=== PATIENT | male | born 1960 | race Two or more races ===

== ENCOUNTER 2024-07-20 18:23 | Inpatient (IN) | payer MEDICAID, OTHER ==
[~2024-07-20] VITALS: Ht 167.6 cm; Wt 63.0 kg
[2024-07-20 19:33] LABS: Basophils # (auto) 0.1 10 ^3/uL (0-0.2); Basophils % (auto) 1.3 % (0.0-2.0); Eosinophils # (auto) 0 10 ^3/uL (0-0.8); Eosinophils % (auto) 0.5 % (0.0-7.0); Hematocrit 38.8 % (41.0-53.0); Hemoglobin 13.1 g/dL (13.5-17.5); Lymphocytes # (auto) 1.1 10 ^3/uL (0.4-5.4); Lymphocytes % (auto) 11.1 % (10.0-50.0); Mean Corpuscular Hemoglobin 29.5 pg (28.0-32.0); Mean Corpuscular Hgb Conc. 33.8 g/dL (32.0-36.0); Mean Corpuscular Volume 87.4 fL (80.0-100.0); Monocytes # (auto) 1.1 10 ^3/uL (0-1.3); Monocytes % (auto) 11.1 % (0.0-12.0); Neutrophils # (auto) 7.3 10 ^3/uL (1.6-8.6); Platelet Count (auto) 255 10^3/uL (140-450); Red Blood Cells 4.44 10^6/uL (4.5-5.90); Red Cell Distribution Width 12.8 % (11.8-14.3); White Blood Cell 9.7 10^3/uL (4.4-10.8)
[2024-07-20 19:50] LABS: Alanine Aminotransferase 28 U/L (7-40); Albumin 4.6 g/dL (3.2-4.8); Alkaline Phosphatase 196 U/L (46-116); Anion Gap 6 (5-15); Aspartate Aminotransferase 19 U/L (13-40); BUN/Creatinine Ratio 12.6 (10.0-20.0); Bilirubin, Total 0.6 mg/dL (0.2-1.0); Blood Urea Nitrogen 17 mg/dL (9-23); Calcium 10.1 mg/dL (8.7-10.4); Carbon Dioxide 27 mmol/L (20-31); Chloride 97 mmol/L (98-107); Potassium 4.2 mmol/L (3.5-5.1); Sodium 130 mmol/L (136-145); Total Protein 7.9 g/dL (5.7-8.2)
[2024-07-20 19:53] LABS: Glucose 498 mg/dL (74-106)
[2024-07-20 20:19] LABS: Urine Bacteria None Seen /hpf (None Seen)
[2024-07-20 20:39] LABS: Urine Blood 1+ /uL (Negative); Urine Clarity Clear (Clear); Urine Color Light-Yellow (Yellow); Urine Protein, UAD 1+ (Negative); Urine Specific Gravity 1.034 (1.001-1.035); Urine Urobilinogen Normal (Negative); Urine WBC <1 /hpf (0 - 3); Urine pH 5.5 (5.0-9.0)
[2024-07-20 20:47] LABS: Amphetamine Screen, Urine Pos (NEGATIVE); Barbiturate Scree,Urine Neg (NEGATIVE); Benzodiazephine Screen, Urine Neg (NEGATIVE); Cocaine Screen, Urine Neg (NEGATIVE)
[2024-07-20 20:48] LABS: Cannabinoid Screen, Urine Neg (NEGATIVE); Opiate Scree,Urine Neg (NEGATIVE); Phencyclidine Screen, Urine Neg (NEGATIVE)
[2024-07-20] MEDS ORDERED: cefTRIAXone 1GM/50ML D5W 50 ML IV ONE (21:00)
[2024-07-20] MEDS: SODIUM CHLORIDE 0.9% 1,000 ML IV ONE ×2 (21:12)
[2024-07-20] MEDS: HYDROcodone-ACET 5/325MG TAB PO ONE (21:16)
[2024-07-20] MEDS: INSULIN LANTUS (GLARGINE) 1 /0.01ml (100units/ml) SC ONE ×2 (21:28→23:19)
[2024-07-20] MEDS: cefTRIAXone 1GM/50ML D5W 50 ML IV ONE (21:28)
[2024-07-20] MEDS ORDERED: DEXTROSE (50%) 50ML SYRG IV PRN ×2 (21:30→23:00)
[2024-07-20] MEDS: LISINOPRIL 5 MG TAB PO ONE (21:30)
[2024-07-20] MEDS ORDERED: CLINDAMYCIN 600MG IV 50 ML IV ONE (21:30)
[2024-07-20] MEDS: THIAMINE 100mg/ml INJ (200mg/2ml VIAL) IV ONE (21:40)
[2024-07-20 22:04] LABS: INR 1.06 (0.9-1.15); Partial Thromboplastin Time 32.2 SEC (24.5-34.5); Prothrombin Time 11.2 sec (9.3-11.8)
[2024-07-20] MEDS: CLINDAMYCIN 600MG IV 50 ML IV ONE (22:17)
[2024-07-20 22:48] LABS: Blood Alcohol < 3.0 mg/dL (<10); Magnesium 1.6 mg/dL (1.6-2.6)
[2024-07-20 22:49] LABS: Phosphorus 3.2 mg/dL (2.4-5.1)
[2024-07-21] MEDS: ACCU-CHEK COMFORT CURVE STRIP VI SCH
[2024-07-21] MEDS ORDERED: InsuLIN REG 1unit/0.01ml Soln (100units/ml) SC SCH
[2024-07-21] MEDS ORDERED: ACCU-CHEK COMFORT CURVE STRIP VI SCH
[2024-07-21] MEDS: InsuLIN REG 1unit/0.01ml Soln (100units/ml) SC SCH (00:52)
[2024-07-21] MEDS: MAGNESIUM OXIDE 400 MG TAB PO ONE (02:38)
[2024-07-21] MEDS: traMADol HCL 50 MG TAB PO PRN (04:20)
[2024-07-21 04:41] LABS: Basophils # (auto) 0.2 10 ^3/uL (0-0.2); Basophils % (auto) 1.7 % (0.0-2.0); Eosinophils # (auto) 0.1 10 ^3/uL (0-0.8); Hemoglobin 13.1 g/dL (13.5-17.5); Lymphocytes # (auto) 1.4 10 ^3/uL (0.4-5.4); Lymphocytes % (auto) 13.1 % (10.0-50.0); Mean Corpuscular Hemoglobin 29.6 pg (28.0-32.0); Mean Corpuscular Hgb Conc. 34.5 g/dL (32.0-36.0); Mean Corpuscular Volume 85.8 fL (80.0-100.0); Monocytes # (auto) 1.4 10 ^3/uL (0-1.3); Monocytes % (auto) 13.7 % (0.0-12.0); Neutrophils # (auto) 7.3 10 ^3/uL (1.6-8.6); Neutrophils % (auto) 70.5 % (37.0-80.0); Nucleated Red Blood Cells % 0.2 %; Platelet Count (auto) 149 10^3/uL (140-450); Red Blood Cells 4.43 10^6/uL (4.5-5.90); White Blood Cell 10.4 10^3/uL (4.4-10.8)
[2024-07-21] MEDS: CYANOCOBALAMIN (B-12) 1000 MCG/1 ML VIAL IM ONE (04:43)
[2024-07-21 04:49] LABS: Chloride 104 mmol/L (98-107); Sodium 134 mmol/L (136-145)
[2024-07-21 04:50] LABS: Anion Gap 9 (5-15); Carbon Dioxide 21 mmol/L (20-31)
[2024-07-21 04:51] LABS: Calcium 9.5 mg/dL (8.7-10.4)
[2024-07-21 04:55] LABS: BUN/Creatinine Ratio 13.8 (10.0-20.0); Blood Urea Nitrogen 13 mg/dL (9-23)
[2024-07-21 04:57] LABS: Glucose 196 mg/dL (74-106)
[2024-07-21] MEDS ORDERED: IPRATROPIUM BROM 0.5 MG/2.5ML INH SOL NEB SCH (06:00)
[2024-07-21] MEDS: CLINDAMYCIN 600MG IV 50 ML IV SCH (06:59)
[2024-07-21 08:47] VITALS: PULSE 102; RESP 16; O2SAT 98
[2024-07-21] MEDS: ENOXAPARIN SOD 30 MG/0.3 ML SYRINGE SC SCH (10:31)
[2024-07-21] MEDS: ERGOCALCIFEROL 50,000 UNIT(1.25MG) CAP PO SCH (10:31)
[2024-07-21] MEDS: LISINOPRIL 5 MG TAB PO SCH (10:32)
[2024-07-21 10:36] LABS: COVID19 ANTIGEN SOFIA FIA NEGATIVE (NEGATIVE); Rapid Influenza A Negative (Negative); Rapid Influenza B Negative (Negative)
[2024-07-21 13:52] VITALS: BP 128/98; PULSE 89; RESP 16; TEMP 98.1; O2SAT 96; O2SAT 98
[2024-07-21 15:29] LABS: Erythrocyte Sedimentation Rate 60 mm/hr (0-20)
[2024-07-21 17:00] VITALS: BP 158/80; PULSE 86; RESP 17; TEMP 98.2; O2SAT 98
[2024-07-21 20:00] VITALS: PULSE 80; RESP 17; O2SAT 98
[2024-07-21] MEDS: cefTRIAXone 1GM/50ML D5W 50 ML IV SCH (20:15)
[2024-07-21 21:00] VITALS: BP 163/87; PULSE 111; RESP 20; TEMP 98.6; O2SAT 99
[2024-07-22] VITALS (9 sets, daily range): BP systolic 138–160; BP diastolic 66–80; PULSE 75–115; RESP 15–21; TEMP 97.7–99.7; O2SAT 94–100
[2024-07-22 06:17] LABS: Anion Gap 6 (5-15); Carbon Dioxide 27 mmol/L (20-31); Chloride 101 mmol/L (98-107); Sodium 134 mmol/L (136-145)
[2024-07-22 06:19] LABS: Calcium 9.7 mg/dL (8.7-10.4)
[2024-07-22 06:24] LABS: BUN/Creatinine Ratio 11.1 (10.0-20.0); Blood Urea Nitrogen 12 mg/dL (9-23); Glucose 247 mg/dL (74-106)
[2024-07-22 08:06] LABS: PSA Free 0.04 ng/mL; Prostate Specific Antigen 0.2 ng/mL (0.0-4.0)
[2024-07-22] MEDS ORDERED: VANCOMYCIN PER PHARMACY 0 MG IV SCH (08:15)
[2024-07-22] MEDS: VANCOMYCIN 1GM/200ML PREMIX 250 ML IV SCH (09:07)
[2024-07-22] MEDS ORDERED: fentaNYL CITRATE 100 MCG/2 ML VL ONE (13:20)
[2024-07-22] MEDS ORDERED: ePHEDrine SULFATE 50 MG/ML AMP ONE (13:31)
[2024-07-22] MEDS: BUPIVACAINE 0.5% P/F INJ 10 ML VIAL ONE (13:34)
[2024-07-22] MEDS ORDERED: ONDANSETRON HCL 4 MG/2 ML VIAL ONE (13:45)
[2024-07-22] MEDS ORDERED: PHENYLEPHRINE HCL 10 MG/ML VL ONE (13:49)
[2024-07-22] MEDS: CEFEPIME 1GM/ 50ML 50 ML IV SCH (15:12)
[2024-07-22] MEDS: hydrALAZINE HCL 20 MG/ML VL IV PRN (16:37)
[2024-07-22] MEDS: ACETAMINOPHEN 325 MG TAB PO PRN (19:51)
[2024-07-23] MEDS: ACETAMINOPHEN 500 MG TAB PO PRN
[2024-07-23 01:10] VITALS: BP 114/66; PULSE 85; RESP 18; TEMP 98.4; O2SAT 98
[2024-07-23 05:00] VITALS: BP 116/68; PULSE 78; RESP 20; TEMP 97.9; O2SAT 95
[2024-07-23 06:29] LABS: Chloride 100 mmol/L (98-107); Potassium 3.4 mmol/L (3.5-5.1); Sodium 132 mmol/L (136-145)
[2024-07-23 06:30] LABS: Anion Gap 6 (5-15); Carbon Dioxide 26 mmol/L (20-31)
[2024-07-23 06:31] LABS: Calcium 9.1 mg/dL (8.7-10.4)
[2024-07-23 06:35] LABS: BUN/Creatinine Ratio 12.8 (10.0-20.0); Blood Urea Nitrogen 19 mg/dL (9-23); Glucose 169 mg/dL (74-106)
[2024-07-23 08:00] VITALS: PULSE 74; RESP 18; O2SAT 96
[2024-07-23] MEDS ORDERED: CEFP200T15 PO (08:05)
[2024-07-23 08:35] VITALS: BP 128/64; PULSE 74; RESP 18; TEMP 98.3; O2SAT 96
[2024-07-23] MEDS ORDERED: VANCOMYCIN 750mg/150ml 150 ML IV SCH (09:00)
[2024-07-23] MEDS: SODIUM CHLORIDE 0.9% 500 ML IV ONE (10:50)
[2024-07-23 12:51] VITALS: BP 128/64; PULSE 74; RESP 18; TEMP 98.3; O2SAT 96
== END 2024-07-23 13:00 | disposition home or self-care (01) | DRG 314 ==
LOC: ER 18:23 → OVERFLOW 22:09 → EAST 07-21 13:50
PROVIDERS: ADMIT Internal Medicine; ATTEND Internal Medicine
PROC: 0KBV0ZZ Excision of Right Foot Muscle, Open Approach (ICD-10-PCS; 2024-07-22)
PROC: 0L8N3ZZ Division of Right Lower Leg Tendon, Percutaneous Approach (ICD-10-PCS; principal; 2024-07-22 13:10)
DX: T87.43 Infection of amputation stump, right lower extremity (principal); A41.9 Sepsis, unspecified organism; J12.9 Viral pneumonia, unspecified; L03.115 Cellulitis of right lower limb; E11.621 Type 2 diabetes mellitus with foot ulcer; L97.519 Non-pressure chronic ulcer of other part of right foot with unspecified severity; M19.011 Primary osteoarthritis, right shoulder; E11.628 Type 2 diabetes mellitus with other skin complications; F15.10 Other stimulant abuse, uncomplicated; I10 Essential (primary) hypertension; E55.9 Vitamin D deficiency, unspecified; Z59.02 Unsheltered homelessness; Z91.199 Patient's noncompliance with other medical treatment and regimen due to unspecified reason; Z79.4 Long term (current) use of insulin; Z79.899 Other long term (current) drug therapy; Z89.421 Acquired absence of other right toe(s)
CPT/HCPCS: 36415; 71045; 73030; 73630; 73700; 73718; 80048; 80053; 80202; 80307; 80320; 81001; 82010; 82306; 82607; 82746; 82962; 83036; 83605; 83735; 83880; 83930; 84100; 84154; 84443; 84484; 85025; 85610; 85652; 85730; 86141; 87040; 87070; 87075; 87077; 87081; 87186; 87205; 87426; 87804; 93005; G0378; J1815; J2405; J3490

== ENCOUNTER 2025-09-13 14:13 | Inpatient (IN) | payer MEDICAID ==
[~2025-09-13] VITALS: Ht 167.6 cm; Wt 64.3 kg
[~2025-09-13 14:13] MED LIST: CEFP200T15 PO
--- NOTE | 2025-09-13 15:28 | ED.PDOC ---
Musculoskeletal HPI Comments This is a 65 year old male presenting to the ED with chief complaint of right toe wound. Patient's reports that the patient was noted yesterday to have a black discolored right great toe that is suspected to be infected. Patient denies any fever, chills, weakness, fall, or injury. Chief Complaint: Lower Extremity Time Seen by MD: 15:28 Primary Care Provider: UNKNOWN Reviewed Notes: Nurses Notes, Medications, Allergies Allergies: Coded Allergies: NO KNOWN ALLERGIES (Unverified , 07/20/24) Home Meds Active Scripts Cefpodoxime Proxetil (Cefpodoxime Proxetil) 200 Mg Tab, 1 TAB PO BID for 7 Days, #14 TAB Prov:CARMEN KELLOGG RESIDENT 07/23/24 Information Source: Patient Mode of Arrival: Ambulatory Location: Right Extremity Location: Great Toe Timing: Days Prehospital treatment: None Severity: Severe Able to Move Extremity: Yes Bear Weight: Limited Pain: Moderate Mechanism: Spontaneous Circumstances: Spontaneous Onset of Symptoms: Spontaneous Symptoms: Swelling, Erythema DVT Risk Factors: NONE Last Tetanus: Unknown Past Medical History PAST MEDICAL HISTORY: DM Past Medical History (Other): Blind Surgical History (Other): Lt foot surgery Family History Family History: Reviewed,noncontributory to illness, Unknown Social History Smoker: Non-Smoker Alcohol: Denies ETOH Use Drugs: Denies Drug Use Lives In: Homeless Constitutional: denies: chills, diaphoresis, fatigue, fever, malaise, sweats, weakness, others EENTM: denies: blurred vision, double vision, ear bleeding, ear discharge, ear drainage, ear pain, ear ringing, eye pain, eye redness, hearing loss, mouth pain, mouth swelling, nasal discharge, nose bleeding, nose congestion, nose pain, photophobia, tearing, throat pain, throat swelling, voice changes, others Respiratory: denies: cough, hemoptysis, orthopnea, SOB at rest, shortness of breath, SOB with excertion, stridor, wheezing, others Cardiovascular: denies: chest pain, dizzy spells, diaphoresis, Dyspnea on exertion, edema, irregular heart beat, left arm pain, lightheadedness, palpitations, PND, syncope, others Gastrointestinal: denies: abdomen distended, abdominal pain, blood streaked bowels, constipated, diarrhea, dysphagia, difficulty swallowing, hematemesis, melena, nausea, poor appetite, poor fluid intake, rectal bleeding, rectal pain, vomiting, others Genitourinary: denies: burning, dysuria, flank pain, frequency, hematuria, incontinence, penile discharge, penile sore, pain, testicle pain, testicle swelling, urgency, others Neurological: denies: dizziness, fainting, headache, left sided numbness, left sided weakness, numbness, paresthesia, pre-existing deficit, right sided numbness, right sided weakness, seizure, speech problems, tingling, tremors, weakness, others Musculoskeletal: denies: back pain, gout, joint pain, joint swelling, muscle pain, muscle stiffness, neck pain, others Integumetry: reports: wounds (Rt great toe wound); denies: bruises, change in color, change in hair/nails, dryness, laceration, lesions, lumps, rash, others Allergic/Immunocompromised: denies: Difficulty Healing, Frequent Infections, Hives, Itching, others Hematologic/Lymphatic: denies: anemia, blood clots, easy bleeding, easy bruising, swollen glands, others Endocrine: denies: excessive hunger, excessive sweating, excessive thirst, excessive urination, flushing, intolerance to cold, intolerance to heat, unexplained weight gain, unexplained weight loss, others Psychiatric: denies: anxiety, bipolar disorder, depression, hopeless, panic disorder, schizophrenia, sleepless, suicidal, others All Other Systems: Reviewed and Negative Physical Exam General Appearance: No Apparent Distress, Normal HEENT: Normal ENT Inspection, Pharynx Normal, TMs Normal Neck: Full Range of Motion, Non-Tender, Normal, Normal Inspection Respiratory: Chest Non-Tender, Lungs Clear, No Accessory Muscle Use, No Respiratory Distress, Normal Breath Sounds Cardiovascular: No Edema, No JVD, No Murmur, No Gallop, Normal Peripheral Pulses, Regular Rate/Rhythm Breast Exam: Deferred Gastrointestinal: No Organomegaly, Non Tender, No Pulsatile Mass, Normal Bowel Sounds, Soft Genitalia: Deferred Pelvic: Deferred Rectal: Deferred Extremities: No calf tenderness, Normal capillary refill, Normal inspection, Normal range of motion, Non-tender, No pedal edema Musculoskeletal : Apperance: Normal Neurologic: Alert, housekeeper/laundry assistant II-XII nml as Tested, No Motor Deficits, Normal Affect, Normal Mood, No Sensory Deficits Cerebellar Function: Normal Reflexes: Normal Skin: Dry, Normal Color, Warm, Wounds (Necrotic tissue noted to the right greater toe) Lymphatic: No Adenopathy Was a procedure done? Was a procedure done?: No Differential Diagnosis EXT Differential Diagnosis: Cellulitis, Other (Necrosis) X-Ray, Labs, Meds, VS Vital Signs Date Time Temp Pulse Resp B/P (MAP) Pulse Ox O2 Delivery O2 Flow Rate FiO2 09/13/25 14:17 98.2 67 18 151/54 97 98.2 Lab Test 09/13/25 16:24 Range/Units White Blood Count 11.5 H 4.4-10.8 10^3/uL Red Blood Count 4.16 L 4.5-5.90 10^6/uL Hemoglobin 11.9 L 13.5-17.5 g/dL Hematocrit 35.3 L 41.0-53.0 % Mean Corpuscular Volume 84.8 80.0-100.0 fL Mean Corpuscular Hemoglobin 28.6 28.0-32.0 pg Mean Corpuscular Hemoglobin Concent 33.7 32.0-36.0 g/dL Red Cell Distribution Width 13.0 11.8-14.3 % Platelet Count 508 H 140-450 10^3/uL Mean Platelet Volume 8.0 6.9-10.8 fL Neutrophils (%) (Auto) 80.6 H 37.0-80.0 % Lymphocytes (%) (Auto) 12.0 10.0-50.0 % Monocytes (%) (Auto) 5.3 0.0-12.0 % Eosinophils (%) (Auto) 1.9 0.0-7.0 % Basophils (%) (Auto) 0.2 0.0-2.0 % Neutrophils # (Auto) 9.3 H 1.6-8.6 10 ^3/uL Lymphocytes # (Auto) 1.4 0.4-5.4 10 ^3/uL Monocytes # (Auto) 0.6 0-1.3 10 ^3/uL Eosinophils # (Auto) 0.2 0-0.8 10 ^3/uL Basophils # (Auto) 0 0-0.2 10 ^3/uL Nucleated Red Blood Cells 0.0 % Prothrombin Time 10.9 9.3-11.8 sec Prothrombin Time INR 1.03 0.9-1.15 Activated Partial Thromboplast Time 35.9 H 24.5-34.5 SEC Sodium Level 138 136-145 mmol/L Potassium Level 4.1 3.5-5.1 mmol/L Chloride Level 99 98-107 mmol/L Carbon Dioxide Level 29 20-31 mmol/L Anion Gap 10 5-15 Blood Urea Nitrogen 22 9-23 mg/dL Creatinine 1.83 H 0.700-1.30 mg/dL Glomerular Filtration Rate Calc 41 >90 mL/min BUN/Creatinine Ratio 12.0 10.0-20.0 Serum Glucose 257 H 74-106 mg/dL Lactic Acid Level 1.6 0.4-2.0 mmol/L Calcium Level 9.3 8.7-10.4 mg/dL Total Bilirubin 0.2 0.2-1.0 mg/dL Aspartate Amino Transferase (AST) 17 13-40 U/L Alanine Aminotransferase (ALT) 18 7-40 U/L Alkaline Phosphatase 183 H 46-116 U/L Total Protein 7.6 5.7-8.2 g/dL Albumin 4.2 3.2-4.8 g/dL Time of 1ST Reevaluation: 16:26 Reevaluation 1ST: Unchanged Patient Education/Counseling: Diagnosis, Treatment Family Education/Counseling: Diagnosis, Treatment Sepsis Sepsis Reasesment Focused Exam Orders: Laboratory Tests 09/13/25 16:24: Lactic Acid Level 1.6 Departure 1 Departure Time of Disposition: 17:26 (Patient likely with osteomyelitis of the foot. We will empirically cover patient with antibiotics and admit patient for further workup) Impression: Primary Impression: Diabetic foot ulcer Additional Impression: Right foot pain Disposition: ADMITTED INPATIENT Admit to: Tele Condition: Guarded Critical Care Note Critical Care Time?: Yes Critical care comment: Concern for osteomyelitis and sepsis Authorized and Performed by: Shayla Banda MD Total critical care time: Approximately 39 minutes Due to a high probability of clinically significant, life threatening deterioration, the patient required my highest level of preparedness to intervene emergently and I personally spent this critical care time directly and personally managing the patient. This critical care time included obtaining a history; examining the patient; pulse oximetry; ordering and review of studies; arranging urgent treatment with development of a management plan; evaluation of patient's response to treatment; frequent reassessment; and, discussions with other providers. This critical care time was performed to assess and manage the high probability of imminent, life-threatening deterioration that could result in multi-organ failure. It was exclusive of separately billable procedures and treating other patients and teaching time. Please see my other sections and the rest of the note for further information on patient assessment and treatment. Stability Stability form required: No Heart Score Heart Score: Heart Score Response (Comments) Value History N/A 0 EKG N/A 0 Age N/A 0 Risk Factors N/A 0 Troponin N/A 0 Total 0 I personally scribed for SHAYLA BANDA MD ([email or web address]) on 09/13/25 at 15:28. Electronically submitted by Usman Dent ([email or web address]). SHAYLA BANDA MD Sep 13, 2025 15:28
[2025-09-13] MEDS ORDERED: CEFEPIME 1GM/50ML 50 ML IV ONE (16:00)
--- NOTE | 2025-09-13 16:26 | DVH ---
CHEST RADIOGRAPH Indication: fever Technique: Single frontal view of the chest was obtained Comparison: XY CHEST XRAY 1 VIEW on DOS: 07/21/24, XR CHEST 1 VIEW on DOS: 03/13/24 FINDINGS: Lines and Tubes: None Lungs: No focal consolidation. Pleura: No effusion. No pneumothorax. Cardiomediastinal contours: Unremarkable Bones: No acute osseous abnormality. IMPRESSION: No acute cardiopulmonary disease.
[2025-09-13 16:47] LABS: Hematocrit 35.3 % (41.0-53.0); Hemoglobin 11.9 g/dL (13.5-17.5); Mean Corpuscular Hemoglobin 28.6 pg (28.0-32.0); Mean Corpuscular Volume 84.8 fL (80.0-100.0); Nucleated Red Blood Cells % 0.0 %
--- NOTE | 2025-09-13 16:50 | DVH ---
CLINICAL INDICATION: necrotic toe TECHNIQUE: 3 radiographic views of the left foot were obtained. Comparison: XY R FOOT 3 VIEW XRAY on DOS: 08/05/24, XY R FOOT 3 VIEW XRAY on DOS: 07/20/24 FINDINGS/IMPRESSION: Osteoporotic changes are noted in the distal phalanx left great toe. Recommend MRI to exclude osteomyelitis.
[2025-09-13 17:03] LABS: Albumin 4.2 g/dL (3.2-4.8); Calcium 9.3 mg/dL (8.7-10.4); Chloride 99 mmol/L (98-107); INR 1.03 (0.9-1.15); Partial Thromboplastin Time 35.9 SEC (24.5-34.5); Potassium 4.1 mmol/L (3.5-5.1); Prothrombin Time 10.9 sec (9.3-11.8); Sodium 138 mmol/L (136-145)
[2025-09-13 17:10] LABS: Anion Gap 10 (5-15); BUN/Creatinine Ratio 12.0 (10.0-20.0)
[2025-09-13 17:11] LABS: Alanine Aminotransferase 18 U/L (7-40); Alkaline Phosphatase 183 U/L (46-116); Bilirubin, Total 0.2 mg/dL (0.2-1.0); Blood Urea Nitrogen 22 mg/dL (9-23); Carbon Dioxide 29 mmol/L (20-31); Glucose 257 mg/dL (74-106); Total Protein 7.6 g/dL (5.7-8.2)
[2025-09-13 18:45] VITALS: PULSE 104; RESP 16; O2SAT 99
[2025-09-13 18:48] LABS: Urine Protein, UAD 3+ (Negative)
[2025-09-13] MEDS: LACTATED RINGER'S 1,900 ML IV ONE (19:03)
[2025-09-13] MEDS: CEFEPIME 2GM/50ML NS 50 ML IV ONE (19:35)
[2025-09-13] MEDS: VANCOMYCIN 1GM/250ML KIT 250 ML IV ONE (19:55)
[2025-09-13] MEDS ORDERED: ACETAMINOPHEN 325 MG TAB PO PRN (20:00)
[2025-09-13] MEDS ORDERED: HYDROcodone-ACET 5/325MG TAB PO PRN (20:00)
[2025-09-13] MEDS ORDERED: DEXTROSE (50%) 50ML SYRG IV PRN (20:00)
[2025-09-13] MEDS ORDERED: VANCOMYCIN PER PHARMACY 0 MG IV SCH (20:00)
[2025-09-13] MEDS ORDERED: ONDANSETRON HCL 4 MG/2 ML VIAL IV PRN (20:00)
[2025-09-13] MEDS: InsuLIN REG 1unit/0.01ml Soln (100units/ml) SC SCH (20:23)
[2025-09-13] MEDS: ACCU-CHEK COMFORT CURVE STRIP VI SCH (20:23)
--- NOTE | 2025-09-13 21:46 | DVHHP2 ---
History of Present Illness Reason for Visit: Left foot infection History of Present Illness 65-year-old male presents for evaluation of left great toe pain. Patient reports being legally blind and having left great toe pain since yesterday. On assessment great toe noted to be black/discolored. Denies fever or chills. Past Medical History Diabetes mellitus, hypertension, legally blind Past Surgical History Right foot toe amputations Family History Noncontributory Smoke: No ALCOHOL: none Drugs: None Lives: with Family Review of Systems Review of Systems Review of systems are currently negative otherwise addressed in HPI. Allergies: Coded Allergies: NO KNOWN ALLERGIES (Unverified , 07/20/24) Medications Current Medications Medications Dose Ordered Sig/Guanako Route Start Time Stop Time Status Last Admin Dose Admin Cefepime HCl 50 ml @ 12.5 mls/hr Q12H IV 09/14/25 07:00 Vancomycin HCl 0 ml @ 0 mls/hr PER PHARMACY IV 09/13/25 20:00 Lisinopril 20 mg DAILY PO 09/14/25 10:00 Empaglifozin 10 mg DAILY PO 09/14/25 10:00 Diagnostic Test (Pha) 1 strip IQ4HR 09/13/25 20:00 09/13/25 20:23 1 STRIP Insulin Human Regular IQ4HR SC 09/13/25 20:00 09/13/25 20:23 6 UNITS Dextrose 50 ml UD PRN IV 09/13/25 20:00 Acetaminophen/ Hydrocodone Bitart 1 tab Q4HP PRN PO 09/13/25 20:00 Ondansetron HCl 4 mg Q4HP PRN IV 09/13/25 20:00 Acetaminophen 650 mg Q6HP PRN PO 09/13/25 20:00 Exam Vital Signs Vital Signs Date Time Temp Pulse Resp B/P (MAP) Pulse Ox O2 Delivery O2 Flow Rate FiO2 09/13/25 20:25 98.0 109 13 128/93 (105) 100 98.0 09/13/25 18:45 Room Air* 0 21 Exam Gen: 65-year-old male in mild distress Skin: Warm, dry, normal color and texture, no rash. HEENT: Normocephalic atraumatic, mucous membranes moist and pink. Neck: Cervical and supraclavicular nodes normal without enlargement, trachea is midline, thyroid gland is normal without masses. Pulmonary: Clear to auscultation and percussion bilaterally. Cardiac: Regular rate and rhythm. No murmur Abdomen: Soft, nontender, nondistended, bowel sounds present all 4 quadrants, no guarding, no rigidity, no organomegaly. Extremities: No cyanosis, clubbing, left foot great toe discoloration Neuro: Cranial nerves II through XII grossly intact, normal affect and speech, no focal motor deficits. Labs/Xrays ORDERING PHYSICIAN: SHAYLA ALLEN MD PROCEDURE(s): CXRP - CHEST PORTABLE REASON: fever ORDER NUMBER(s): [id number], ACCESSION NUMBER(s): [id number] CHEST RADIOGRAPH Indication: fever Technique: Single frontal view of the chest was obtained Comparison: XY CHEST XRAY 1 VIEW on DOS: 07/21/24, XR CHEST 1 VIEW on DOS: 03/13/24 FINDINGS: Lines and Tubes: None Lungs: No focal consolidation. Pleura: No effusion. No pneumothorax. Cardiomediastinal contours: Unremarkable Bones: No acute osseous abnormality. IMPRESSION: No acute cardiopulmonary disease. RING PHYSICIAN: SHAYLA ALLEN MD PROCEDURE(s): LFOOT - L FOOT 3 VIEW XRAY REASON: necrotic toe ORDER NUMBER(s): [id number], ACCESSION NUMBER(s): [id number] CLINICAL INDICATION: necrotic toe TECHNIQUE: 3 radiographic views of the left foot were obtained. Comparison: XY R FOOT 3 VIEW XRAY on DOS: 08/05/24, XY R FOOT 3 VIEW XRAY on DOS: 07/20/24 FINDINGS/IMPRESSION: Osteoporotic changes are noted in the distal phalanx left great toe. Recommend MRI to exclude osteomyelitis. Labs Test 09/13/25 20:18 09/13/25 16:24 09/13/25 16:10 Range/Units POC Glucose 255 H 70-106 mg/dl White Blood Count 11.5 H 4.4-10.8 10^3/uL Red Blood Count 4.16 L 4.5-5.90 10^6/uL Hemoglobin 11.9 L 13.5-17.5 g/dL Hematocrit 35.3 L 41.0-53.0 % Mean Corpuscular Volume 84.8 80.0-100.0 fL Mean Corpuscular Hemoglobin 28.6 28.0-32.0 pg Mean Corpuscular Hemoglobin Concent 33.7 32.0-36.0 g/dL Red Cell Distribution Width 13.0 11.8-14.3 % Platelet Count 508 H 140-450 10^3/uL Mean Platelet Volume 8.0 6.9-10.8 fL Neutrophils (%) (Auto) 80.6 H 37.0-80.0 % Lymphocytes (%) (Auto) 12.0 10.0-50.0 % Monocytes (%) (Auto) 5.3 0.0-12.0 % Eosinophils (%) (Auto) 1.9 0.0-7.0 % Basophils (%) (Auto) 0.2 0.0-2.0 % Neutrophils # (Auto) 9.3 H 1.6-8.6 10 ^3/uL Lymphocytes # (Auto) 1.4 0.4-5.4 10 ^3/uL Monocytes # (Auto) 0.6 0-1.3 10 ^3/uL Eosinophils # (Auto) 0.2 0-0.8 10 ^3/uL Basophils # (Auto) 0 0-0.2 10 ^3/uL Nucleated Red Blood Cells 0.0 % Prothrombin Time 10.9 9.3-11.8 sec Prothrombin Time INR 1.03 0.9-1.15 Activated Partial Thromboplast Time 35.9 H 24.5-34.5 SEC Sodium Level 138 136-145 mmol/L Potassium Level 4.1 3.5-5.1 mmol/L Chloride Level 99 98-107 mmol/L Carbon Dioxide Level 29 20-31 mmol/L Anion Gap 10 5-15 Blood Urea Nitrogen 22 9-23 mg/dL Creatinine 1.83 H 0.700-1.30 mg/dL Glomerular Filtration Rate Calc 41 >90 mL/min BUN/Creatinine Ratio 12.0 10.0-20.0 Serum Glucose 257 H 74-106 mg/dL Lactic Acid Level 1.6 0.4-2.0 mmol/L Calcium Level 9.3 8.7-10.4 mg/dL Total Bilirubin 0.2 0.2-1.0 mg/dL Aspartate Amino Transferase (AST) 17 13-40 U/L Alanine Aminotransferase (ALT) 18 7-40 U/L Alkaline Phosphatase 183 H 46-116 U/L Total Protein 7.6 5.7-8.2 g/dL Albumin 4.2 3.2-4.8 g/dL Urine Color Yellow Yellow Urine Clarity Clear Clear Urine pH 6.0 5.0-9.0 Urine Specific Rhine 1.031 1.001-1.035 Urine Protein 3+ H Negative Urine Ketones Trace Negative Urine Blood Trace H Negative /uL Urine Nitrite Negative Negative Urine Bilirubin Negative Negative Urine Urobilinogen Normal Negative mg/dL Urine Leukocyte Esterase Negative Negative /uL Urine RBC 5 0 - 3 /hpf Urine Microscopic WBC 2 0-3 /HPF Urine Squamous Epithelial Cells Few <5 /hpf Urine Bacteria Few H None Seen /hpf Urine Mucus Few None Seen Urine Glucose 4+ H Normal mg/dL SEPSIS Sepsis Screen Date sepsis recognized/suspect: Sep 13, 2025 Time Sepsis recognized/suspect: 1844 Recent Procedure: No On Antibiotic Therapy: No Respiratory Rate >20: No Heart Rate >90: Yes Temp<36 C (96.8 F) or >38.3 C: No SBP <90 or MAP <65 mmHG: No New Acute Mental Status Change: No Is the patient on CPAP, BIPAP,: No Physician Orders Chest Portable (09/13/25 15:46) Accucheck (09/13/25 15:46) Blood Culture (09/13/25 15:46) Notify Md If Map <65 Or Bp<90 (09/13/25 15:46) If Map<65 Start Vasopressor (09/13/25 15:46) Sepsis Reassesment After Fluid (09/13/25 16:46) L Foot 3 View Xray (09/13/25 15:46) Admit (09/13/25 19:42) Vancomycin Per Pharmacy (09/13/25 20:00) Lisinopril Tablet (Zestril Tablet) (09/14/25 10:00) Empagliflozin (Jardiance) (09/14/25 10:00) Basic Metabolic Panel (09/14/25 04:00) Glucose Blood (Accu-Chek Comfort Curve T (09/13/25 20:00) Insulin R (Human) (Insulin R) (09/13/25 20:00) Dextrose 50% Syringe (09/13/25 20:00) Hydrocodone-Acet 5/325mg Tab (Nebo 5/32 (09/13/25 20:00) Ondansetron Hcl (Zofran) (09/13/25 20:00) Complete Blood Count (09/14/25 04:00) Cardiac Diet-2gna,Lofat,Lochol (09/14/25 Breakfast) Condition: Stable (09/13/25 19:49) Acetaminophen Tablet (Tylenol Tablet) (09/13/25 20:00) Bedrest With Bathroom Privileg (09/13/25 19:49) Cefepime 1gm/50ml (Maxipime 1gm/50ml) (09/14/25 07:00) Creatinine (09/14/25 04:00) Vancomycin,Random (09/14/25 04:00) Mri L Foot Wo Contrast (09/13/25 21:38) *Podiatry Consult Musson(Dv) (09/13/25 21:38) Vital Signs Date Time Temp Pulse Resp B/P (MAP) Pulse Ox O2 Delivery O2 Flow Rate FiO2 09/13/25 20:25 98.0 109 13 128/93 (105) 100 98.0 09/13/25 20:25 98.0 108 13 128/93 (105) 100 98.0 09/13/25 18:45 98.6 104 16 145/66 (92) 99 98.6 09/13/25 18:45 104 16 99 Room Air* 0 21 09/13/25 14:17 98.2 67 18 151/54 97 98.2 Laboratory Tests Test 09/13/25 16:24 Lactic Acid Level 1.6 mmol/L (0.4-2.0) White Blood Count 11.5 10^3/uL (4.4-10.8) H Medications Medications Dose Ordered Sig/Gu[place]ako Route Start Time Stop Time Status Last Admin Dose Admin Cefepime HCl 50 ml @ 50 mls/hr ONCE ONCE IV 09/13/25 19:15 09/13/25 20:14 DC 09/13/25 19:35 50 MLS/HR Diagnostic Test (Pha) 1 strip IQ4HR 09/13/25 20:00 09/13/25 20:23 1 STRIP Insulin Human Regular IQ4HR SC 09/13/25 20:00 09/13/25 20:23 6 UNITS Lactated Ringer's 1,900 ml @ 1,900 mls/hr ONCE ONCE IV 09/13/25 16:00 09/13/25 16:59 DC 09/13/25 19:03 1,900 MLS/HR Vancomycin HCl 250 ml @ 250 mls/hr ONCE ONCE IV 09/13/25 16:00 09/13/25 16:59 DC 09/13/25 19:55 250 MLS/HR Assessment/Plan Assessment/Plan Assessment ? Left foot osteomyelitis Uncontrolled diabetes mellitus Acute kidney injury Legally blind Plan Admit the patient to [facility] to the hospitalist Cefepime/vancomycin MRI of the left foot pending Podiatry consult Continue treatment per orders Plan discussed with: Patient My Orders Orders - JAQUI RODRIGUEZ AGACNP Procedure Category Date Status Time Admit ADMIT 09/13/25 Transmitted 19:42 Vancomycin Per PHA 09/13/25 In Process Pharmacy 20:00 Lisinopril Tablet PHA 09/14/25 In Process (Zestril Tablet) 10:00 Empagliflozin PHA 09/14/25 In Process (Jardiance) 10:00 Basic Metabolic Panel LAB 09/14/25 Verified 04:00 Glucose Blood PHA 09/13/25 In Process (Accu-Chek Comfort 20:00 Insulin R (Human) PHA 09/13/25 In Process (Insulin R) 20:00 Dextrose 50% Syringe PHA 09/13/25 In Process 20:00 Hydrocodone-Acet PHA 09/13/25 In Process 5/325mg Tab (Nebo 20:00 Ondansetron Hcl PHA 09/13/25 In Process (Zofran) 20:00 Complete Blood Count LAB 09/14/25 Verified 04:00 Cardiac DIET 09/14/25 Transmitted Diet-2gna,Lofat,Lochol Breakfast Condition: Stable SUSAN 09/13/25 In Process 19:49 Acetaminophen Tablet PHA 09/13/25 In Process (Tylenol Tablet) 20:00 Bedrest With Bathroom SUSAN 09/13/25 In Process Privileg 19:49 Cefepime 1gm/50ml PHA 09/14/25 In Process (Maxipime 1gm/50ml) 07:00 Creatinine LAB 09/14/25 Verified 04:00 Vancomycin,Random LAB 09/14/25 Verified 04:00 Mri L Foot Wo Contrast MRI 09/13/25 Verified 21:38 *Podiatry Consult CONS 09/13/25 Verified [place](Dvmg) 21:38 Date of Service: Sep 13, 2025 Billing Provider: JAQUI RODRIGUEZ Common Visit Codes: [id number] INP/OBS CARE (HIGH) JAQUI RODRIGUEZ Sep 13, 2025 21:45
[2025-09-13 23:00] VITALS: BP 153/93; PULSE 108; RESP 17; TEMP 98; O2SAT 99
[2025-09-13 23:03] VITALS: PULSE 99; RESP 17; O2SAT 99
[2025-09-13] MEDS ORDERED: LISI20TA56 PO (23:23)
[2025-09-13] MEDS ORDERED: INSUINJ37 SC (23:23)
[2025-09-13] MEDS ORDERED: CETI5TAB6 PO (23:23)
[2025-09-14] VITALS (7 sets, daily range): BP systolic 133–180; BP diastolic 76–100; PULSE 63–99; RESP 16–18; TEMP 97.7–98.9; O2SAT 96–99
[2025-09-14] MEDS: METOPROLOL TARTRATE 25 MG TAB PO ONE (04:03)
--- NOTE | 2025-09-14 04:57 | DVH ---
Left Lower Extremity Arterial Duplex Date: 09/13/2025 10:01 PM Clinical History: left great toe necrosis Comparison: None Technique: Duplex Doppler evaluation including color Doppler and spectral/pulsed waveform analysis of the lower extremity arteries was performed. Finding: Left: Peak systolic velocities are as follows: ASSET AVAILABILITY LEADER 181.7 cm/s Deep femoral 211 cm/s SFA proximal 191.6 cm/s SFA mid-portion 107.4 cm/s SFA distal 153.9 cm/s Popliteal 137.6 cm/s Posterior tibial 54 cm/s Anterior tibial 91.4 cm/s Peroneal not visualized Dorsalis pedis 35.9 cm/s The waveforms are triphasic in the common femoral, superficial femoral, profunda femoral and popliteal arteries. There is monophasic waveform in the anterior tibial, posterior tibial and dorsalis pedis arteries. REFERENCE VALUES, [facility] ([facility]) vascular Imaging Lab Criteria: Peak systolic velocity ranges (in cm/sec) are as follows: <150 cm/s - <20 % stenosis 150-200 cm/s - 20-49% stenosis 200-300 cm/s - 50-75% stenosis >300 cm/s -> 75% stenosis IMPRESSION: 1. Approximately 20-49% stenosis of the left common femoral, deep femoral and superficial femoral arteries based on peak systolic velocity criteria. 2. Approximately 60-80% stenosis in the profunda femoral artery. 3. Monophasic waveforms in the anterior tibial, posterior tibial and dorsalis pedis arteries.
[2025-09-14] MEDS: CEFEPIME 1GM/50ML 50 ML IV SCH (06:15)
[2025-09-14 07:35] LABS: Hematocrit 30.5 % (41.0-53.0); Hemoglobin 10.3 g/dL (13.5-17.5); Mean Corpuscular Hemoglobin 28.5 pg (28.0-32.0); Mean Corpuscular Volume 84.4 fL (80.0-100.0); Nucleated Red Blood Cells % 0.0 %
[2025-09-14 07:43] LABS: Chloride 106 mmol/L (98-107); Potassium 3.9 mmol/L (3.5-5.1); Sodium 140 mmol/L (136-145)
[2025-09-14 07:44] LABS: Anion Gap 7 (5-15); Carbon Dioxide 27 mmol/L (20-31)
[2025-09-14 07:48] LABS: Calcium 8.5 mg/dL (8.7-10.4)
[2025-09-14 07:49] LABS: BUN/Creatinine Ratio 15.7 (10.0-20.0); Blood Urea Nitrogen 22 mg/dL (9-23)
[2025-09-14 07:51] LABS: Glucose 149 mg/dL (74-106)
[2025-09-14] MEDS: EMPAGLIFLOZIN 10 MG TAB PO SCH (09:18)
[2025-09-14] MEDS: LISINOPRIL 20 MG TAB PO SCH (09:19)
[2025-09-14] MEDS: VANCOMYCIN 1GM/250ML KIT 250 ML IV ONE (11:24)
--- NOTE | 2025-09-14 12:39 | DVH ---
CLINICAL INDICATION: r/o osteomyelitis COMPARISON: XY L FOOT 3 VIEW XRAY on DOS: 09/13/25 TECHNIQUE: Multiplanar, multisequence MRI of the left foot was performed without intravenous contrast. Contrast: None. INTERPRETATION: Bones: No evidence of acute fracture. There is T1 hypointensity in the distal phalanx of the great toe with corresponding edema. This is consistent with osteomyelitis. Bone marrow signal is otherwise unremarkable. Soft tissues: The Lisfranc ligament is intact. The medial and lateral collateral ligaments are intact at the metatarsophalangeal joints. The flexor and extensor tendons are intact. There is no plantar plate tear. There is no soft tissue mass or fluid collection. There is edema in the intrinsic muscles of the foot. Marked dorsal soft tissue edema is present. Ulceration noted over the distal phalanx of the great toe. IMPRESSION: 1. Osteomyelitis in the distal phalanx of the great toe of the left foot. Cellulitis in the adjacent soft tissues. 2. Dorsal subcutaneous edema which may reflect cellulitis or sequelae or venous stasis. 3. Edema in the intrinsic muscles of the foot may reflect myositis or denervation.
--- NOTE | 2025-09-14 13:19 | DVHPN2 ---
Reviewed: Care Plan, H&P, Labs, Medications, Previous Orders, Radiology Changes from previous H/P or p: No Changes Objective Vitals Vital Signs Date Time Temp Pulse Resp B/P (MAP) Pulse Ox O2 Delivery O2 Flow Rate FiO2 09/14/25 09:19 133/76 09/14/25 08:57 98.1 63 16 98 98.1 09/14/25 08:00 Room Air* 0 21 Intake/Output Intake and Output 09/14/25 07:00 Intake Total 2350 ml Output Total 315 ml Balance 2035 ml Intake Oral 150 ml IV Total 2200 ml Output Urine Total 315 ml Medications Current Medications Medications Dose Ordered Sig/[place] Route Start Time Stop Time Status Last Admin Dose Admin Cefepime HCl 50 ml @ 12.5 mls/hr Q12H IV 09/14/25 07:00 09/14/25 06:15 12.5 MLS/HR Vancomycin HCl 0 ml @ 0 mls/hr PER PHARMACY IV 09/13/25 20:00 Lisinopril 20 mg DAILY PO 09/14/25 10:00 09/14/25 09:19 20 MG Empaglifozin 10 mg DAILY PO 09/14/25 10:00 09/14/25 09:18 10 MG Diagnostic Test (Pha) 1 strip IQ4HR 09/13/25 20:00 09/14/25 11:21 1 STRIP Insulin Human Regular IQ4HR SC 09/13/25 20:00 09/14/25 11:26 3 UNITS Dextrose 50 ml UD PRN IV 09/13/25 20:00 Acetaminophen/ Hydrocodone Bitart 1 tab Q4HP PRN PO 09/13/25 20:00 Ondansetron HCl 4 mg Q4HP PRN IV 09/13/25 20:00 Acetaminophen 650 mg Q6HP PRN PO 09/13/25 20:00 Laboratory Results Laboratory Tests 09/14/25 06:48 Chemistry Test 09/13/25 16:24 09/14/25 06:48 Albumin 4.2 g/dL (3.2-4.8) Calcium Level 9.3 mg/dL (8.7-10.4) 8.5 mg/dL (8.7-10.4) L Total Protein 7.6 g/dL (5.7-8.2) Coagulation Test 09/13/25 16:24 Prothrombin Time 10.9 sec (9.3-11.8) Prothrombin Time INR 1.03 (0.9-1.15) Activated Partial Thromboplast Time 35.9 SEC (24.5-34.5) H LFT Test 09/13/25 16:24 Alanine Aminotransferase (ALT) 18 U/L (7-40) Alkaline Phosphatase 183 U/L (46-116) H Aspartate Amino Transferase (AST) 17 U/L (13-40) Total Bilirubin 0.2 mg/dL (0.2-1.0) Urinalysis Test 09/13/25 16:10 Urine Color Yellow (Yellow) Urine Clarity Clear (Clear) Urine pH 6.0 (5.0-9.0) Urine Specific [place] 1.031 (1.001-1.035) Urine Protein 3+ (Negative) H Urine Ketones Trace (Negative) Urine Blood Trace /uL (Negative) H Urine Nitrite Negative (Negative) Urine Bilirubin Negative (Negative) Urine Urobilinogen Normal mg/dL (Negative) Urine Leukocyte Esterase Negative /uL (Negative) Urine RBC 5 /hpf (0 - 3) Urine Microscopic WBC 2 /HPF (0-3) Urine Squamous Epithelial Cells Few /hpf (<5) Urine Bacteria Few /hpf (None Seen) H Urine Mucus Few (None Seen) Urine Glucose 4+ mg/dL (Normal) H Labs and/or images reviewed: Labs reviewed by me, Image(s) reviewed by me Assessment/Plan Assessment/Plan Acute osteomyelitis distal phalanx left 1st toe cefepime vancomycin pain medication consult for podiatric Uncontrolled diabetes: Insulin sliding scale Hypertension 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 Vargas Time spent 50 minutes Advanced care planning time 20 minutes Patient is full code Plan discussed with: Patient Date of Service: Sep 14, 2025 Billing Provider: SHRUTHI ZIMMER MD Common Visit Codes: [id number] INP/OBS CARE(HIGH) Secondary Visit Codes: [id number] CARE PLAN 30 MINUTES SHRUTHI ZIMMER MD Sep 14, 2025 13:18
--- NOTE | 2025-09-14 15:02 | DVHCONRES ---
Date Seen: Sep 14, 2025 Reason for Consultation Left hallux wound History of Present Illness 65-year-old male presents for evaluation of left great toe pain. Patient reports being legally blind and having left great toe pain since yesterday. On assessment great toe noted to be black/discolored. Denies fever or chills. Past Medical History See H&P Past Surgical History See H&P Family History: FH: cancer FH: diabetes mellitus Allergies: Coded Allergies: NO KNOWN ALLERGIES (Unverified , 07/20/24) Home Meds Active Scripts Cefpodoxime Proxetil (Cefpodoxime Proxetil) 200 Mg Tab, 1 TAB PO BID for 7 Days, #14 TAB Prov:CARMEN KELLOGG RESIDENT 07/23/24 Reported Medications Insulin Glargine (Lantus Solostar) 100 Unit/Ml Inj, 25 UNIT SC BID 09/13/25 Lisinopril (Lisinopril) 20 Mg Tab, 1 TAB PO DAILY 09/13/25 Cetirizine Hcl (Cetirizine Hcl) 5 Mg Tab, 1 TAB PO DAILY 09/13/25 Current Medications Current Medications Medications (Trade) Dose Ordered Sig/[place] Route PRN Reason Start Time Stop Time Status Last Admin Cefepime HCl 50 ml @ 12.5 mls/hr Q12H IV 09/14/25 07:00 09/14/25 06:15 Vancomycin HCl 0 ml @ 0 mls/hr PER PHARMACY IV 09/13/25 20:00 Lisinopril (Zestril Tablet) 20 mg DAILY PO 09/14/25 10:00 09/14/25 09:19 Empaglifozin (Jardiance) 10 mg DAILY PO 09/14/25 10:00 09/14/25 09:18 Diagnostic Test (Pha) (Accu-Chek Comfort Curve T) 1 strip IQ4HR 09/13/25 20:00 09/14/25 13:42 DC 09/14/25 11:21 Insulin Human Regular (InsuLIN R) IQ4HR SC 09/13/25 20:00 09/14/25 13:42 DC 09/14/25 11:26 Dextrose 50 ml UD PRN IV Blood Sugar LESS THAN 60 09/13/25 20:00 Acetaminophen/ Hydrocodone Bitart ([place] 5/325MG Tab) 1 tab Q4HP PRN PO MODERATE PAIN (4-6 PAIN SCALE) 09/13/25 20:00 Ondansetron HCl (Zofran) 4 mg Q4HP PRN IV NAUSEA / VOMITING 09/13/25 20:00 Acetaminophen (Tylenol Tablet) 650 mg Q6HP PRN PO PAIN SCALE 1-3 OR TEMP>100.4 09/13/25 20:00 Diagnostic Test (Pha) (Accu-Chek Comfort Curve T) 1 strip ACHS 09/14/25 17:00 Insulin Human Regular (InsuLIN R) ACHS SC 09/14/25 17:00 Vancomycin HCl 250 ml @ 250 mls/hr Q16H IV 09/15/25 03:00 Vital Signs Vital Signs Date Time Temp Pulse Resp B/P (MAP) Pulse Ox O2 Delivery O2 Flow Rate FiO2 09/14/25 09:19 133/76 09/14/25 08:57 98.1 63 16 98 98.1 09/14/25 08:00 Room Air* 0 21 Physical Exam Dermatological: Skin is dry with mild erythema and some maceration around the wound site No gross deformities noted Mild non-pitting edema present bilaterally Left hallux eschar with minimal surrounding erythema Vascular: Dorsalis pedis and posterior tibial pulses are 1+ bilaterally Capillary refill is under 2 seconds Skin temperature is warm bilaterally Neurologic: Protective sensation is absent on the plantar forefoot bilaterally Monofilament testing reveals decreased sensation in multiple plantar sites Musculoskeletal: Range of motion at the ankle and MTP joints is within normal limits. Strength is 5/5 in all tested muscle groups. Gait is antalgic due to offloading of the affected limb. Labs/Diagnostic Data Labs Test 09/14/25 11:06 09/14/25 06:48 09/13/25 16:24 09/13/25 16:10 Range/Units POC Glucose 199 H 70-106 mg/dl White Blood Count 10.0 4.4-10.8 10^3/uL Red Blood Count 3.61 L 4.5-5.90 10^6/uL Hemoglobin 10.3 L 13.5-17.5 g/dL Hematocrit 30.5 #L 41.0-53.0 % Mean Corpuscular Volume 84.4 80.0-100.0 fL Mean Corpuscular Hemoglobin 28.5 28.0-32.0 pg Mean Corpuscular Hemoglobin Concent 33.8 32.0-36.0 g/dL Red Cell Distribution Width 13.0 11.8-14.3 % Platelet Count 417 140-450 10^3/uL Mean Platelet Volume 8.0 6.9-10.8 fL Neutrophils (%) (Auto) 75.1 37.0-80.0 % Lymphocytes (%) (Auto) 14.7 10.0-50.0 % Monocytes (%) (Auto) 6.1 0.0-12.0 % Eosinophils (%) (Auto) 3.1 0.0-7.0 % Basophils (%) (Auto) 1.0 0.0-2.0 % Neutrophils # (Auto) 7.5 1.6-8.6 10 ^3/uL Lymphocytes # (Auto) 1.5 0.4-5.4 10 ^3/uL Monocytes # (Auto) 0.6 0-1.3 10 ^3/uL Eosinophils # (Auto) 0.3 0-0.8 10 ^3/uL Basophils # (Auto) 0.1 0-0.2 10 ^3/uL Nucleated Red Blood Cells 0.0 % Sodium Level 140 136-145 mmol/L Potassium Level 3.9 3.5-5.1 mmol/L Chloride Level 106 98-107 mmol/L Carbon Dioxide Level 27 20-31 mmol/L Anion Gap 7 5-15 Blood Urea Nitrogen 22 9-23 mg/dL Creatinine 1.40 H 0.700-1.30 mg/dL Glomerular Filtration Rate Calc 56 >90 mL/min BUN/Creatinine Ratio 15.7 10.0-20.0 Serum Glucose 149 #H 74-106 mg/dL Calcium Level 8.5 L 8.7-10.4 mg/dL Random Vancomycin Level 9.3 5-10 ug/mL Prothrombin Time 10.9 9.3-11.8 sec Prothrombin Time INR 1.03 0.9-1.15 Activated Partial Thromboplast Time 35.9 H 24.5-34.5 SEC Lactic Acid Level 1.6 0.4-2.0 mmol/L Total Bilirubin 0.2 0.2-1.0 mg/dL Aspartate Amino Transferase (AST) 17 13-40 U/L Alanine Aminotransferase (ALT) 18 7-40 U/L Alkaline Phosphatase 183 H 46-116 U/L Total Protein 7.6 5.7-8.2 g/dL Albumin 4.2 3.2-4.8 g/dL Urine Color Yellow Yellow Urine Clarity Clear Clear Urine pH 6.0 5.0-9.0 Urine Specific [place] 1.031 1.001-1.035 Urine Protein 3+ H Negative Urine Ketones Trace Negative Urine Blood Trace H Negative /uL Urine Nitrite Negative Negative Urine Bilirubin Negative Negative Urine Urobilinogen Normal Negative mg/dL Urine Leukocyte Esterase Negative Negative /uL Urine RBC 5 0 - 3 /hpf Urine Microscopic WBC 2 0-3 /HPF Urine Squamous Epithelial Cells Few <5 /hpf Urine Bacteria Few H None Seen /hpf Urine Mucus Few None Seen Urine Glucose 4+ H Normal mg/dL Problems(with codes): (1) Amphetamine abuse (2) Uncontrolled diabetes mellitus (3) Arthritis of shoulder region, right (4) Diabetic foot infection (5) Diabetic foot ulcer (6) Right foot pain Plan/Recommendation ASSESSMENT: Patient is a 65 year old seen on the floor for a worsening ulcer PLAN: - The patients chart was reviewed, clinical findings were discussed with the patient, the etiologies of the conditions were discussed in detail, and a treatment plan was agreed to at this time, with both oral and written instructions provided. - Wound appears to be stable at this point - No advanced imaging needed - Recommend 2 weeks PO Augmentin 875mg - Follow up with me 1 week after DC - Keep dry with betadine - No surgical intervention required All questions were answered and concerns addressed to the patient's satisfaction. The patient was given the phone number to the clinic and was told how to make contact with the clinic should any concerns or questions arise. Patient understands that if any questions or concerns arise prior to the next appointment, we should be contacted immediately. FOLLOW-UP: Continue to follow while inpatient Plan discussed with: Patient Visit Coding Podiatry Date of Service if different f: Sep 14, 2025 Billing Provider: ASHLEY CURTIS DPM Podiatry Common Visit Codes: CONSULT ONLY Podiatry Consult Codes: [id number] NEW/EST MOD 60 ASHLEY CURTIS DPM Sep 14, 2025 15:02
[2025-09-14] MEDS: ACCU-CHEK COMFORT CURVE STRIP VI SCH (17:40)
[2025-09-14] MEDS: InsuLIN REG 1unit/0.01ml Soln (100units/ml) SC SCH (17:50)
[2025-09-14] MEDS ORDERED: cloNIDine 0.1 mg/24hr 7 DAY PATCH TD ONE (20:45)
[2025-09-15 01:00] VITALS: BP 136/74; PULSE 70; RESP 17; TEMP 98.6; O2SAT 96
[2025-09-15] MEDS: VANCOMYCIN 1GM/250ML KIT 250 ML IV SCH (02:38)
[2025-09-15 05:00] VITALS: BP 140/86; PULSE 74; RESP 17; TEMP 98.6; O2SAT 96
--- NOTE | 2025-09-15 07:15 | DVHCONRES ---
Date Seen: Sep 15, 2025 Resident Creating Document: AMY JENNINGS Jr., MD Referring Physician ike Reason for Consultation pad History of Present Illness 65-year-old male presents for evaluation of left great toe pain. Patient reports being legally blind and having left great toe pain since yesterday. On assessment great toe noted to be black/discolored. Denies fever or chills. Past Medical History dm htn Family History: FH: cancer FH: diabetes mellitus Allergies: Coded Allergies: NO KNOWN ALLERGIES (Unverified , 07/20/24) Home Meds Active Scripts Cefpodoxime Proxetil (Cefpodoxime Proxetil) 200 Mg Tab, 1 TAB PO BID for 7 Days, #14 TAB Prov:CARMEN KELLOGG RESIDENT 07/23/24 Reported Medications Insulin Glargine (Lantus Solostar) 100 Unit/Ml Inj, 25 UNIT SC BID 09/13/25 Lisinopril (Lisinopril) 20 Mg Tab, 1 TAB PO DAILY 09/13/25 Cetirizine Hcl (Cetirizine Hcl) 5 Mg Tab, 1 TAB PO DAILY 09/13/25 Current Medications Current Medications Medications (Trade) Dose Ordered Sig/[place] Route PRN Reason Start Time Stop Time Status Last Admin Lisinopril (Zestril Tablet) 20 mg DAILY PO 09/14/25 10:00 09/14/25 09:19 Empaglifozin (Jardiance) 10 mg DAILY PO 09/14/25 10:00 09/14/25 09:18 Diagnostic Test (Pha) (Accu-Chek Comfort Curve T) 1 strip ACHS 09/14/25 17:00 09/15/25 06:01 Insulin Human Regular (InsuLIN R) ACHS SC 09/14/25 17:00 09/14/25 21:17 Vancomycin HCl 250 ml @ 250 mls/hr Q16H IV 09/15/25 03:00 09/15/25 02:38 Vital Signs Vital Signs Date Time Temp Pulse Resp B/P (MAP) Pulse Ox O2 Delivery O2 Flow Rate FiO2 09/15/25 05:00 98.6 74 17 140/86 (104) 96 98.6 09/14/25 20:00 Room Air* 0 21 Physical Exam Pulse exam femoral popliteal pulses palpable weakly palpable pedal pulses he has a left 1st toe with a scab black eschar on the tip. No signs of cellulitis. Labs/Diagnostic Data Labs Test 09/15/25 05:53 09/15/25 04:41 09/14/25 06:48 09/13/25 16:24 Range/Units POC Glucose 132 H 70-106 mg/dl White Blood Count 10.0 4.4-10.8 10^3/uL Red Blood Count 3.61 L 4.5-5.90 10^6/uL Hemoglobin 10.3 L 13.5-17.5 g/dL Hematocrit 30.5 #L 41.0-53.0 % Mean Corpuscular Volume 84.4 80.0-100.0 fL Mean Corpuscular Hemoglobin 28.5 28.0-32.0 pg Mean Corpuscular Hemoglobin Concent 33.8 32.0-36.0 g/dL Red Cell Distribution Width 13.0 11.8-14.3 % Platelet Count 417 140-450 10^3/uL Mean Platelet Volume 8.0 6.9-10.8 fL Neutrophils (%) (Auto) 75.1 37.0-80.0 % Lymphocytes (%) (Auto) 14.7 10.0-50.0 % Monocytes (%) (Auto) 6.1 0.0-12.0 % Eosinophils (%) (Auto) 3.1 0.0-7.0 % Basophils (%) (Auto) 1.0 0.0-2.0 % Neutrophils # (Auto) 7.5 1.6-8.6 10 ^3/uL Lymphocytes # (Auto) 1.5 0.4-5.4 10 ^3/uL Monocytes # (Auto) 0.6 0-1.3 10 ^3/uL Eosinophils # (Auto) 0.3 0-0.8 10 ^3/uL Basophils # (Auto) 0.1 0-0.2 10 ^3/uL Nucleated Red Blood Cells 0.0 % Sodium Level 140 136-145 mmol/L Potassium Level 3.9 3.5-5.1 mmol/L Chloride Level 106 98-107 mmol/L Carbon Dioxide Level 27 20-31 mmol/L Anion Gap 7 5-15 Blood Urea Nitrogen 22 9-23 mg/dL BUN/Creatinine Ratio 15.7 10.0-20.0 Serum Glucose 149 #H 74-106 mg/dL Calcium Level 8.5 L 8.7-10.4 mg/dL Random Vancomycin Level 9.3 5-10 ug/mL Prothrombin Time 10.9 9.3-11.8 sec Prothrombin Time INR 1.03 0.9-1.15 Activated Partial Thromboplast Time 35.9 H 24.5-34.5 SEC Lactic Acid Level 1.6 0.4-2.0 mmol/L Total Bilirubin 0.2 0.2-1.0 mg/dL Aspartate Amino Transferase (AST) 17 13-40 U/L Alanine Aminotransferase (ALT) 18 7-40 U/L Alkaline Phosphatase 183 H 46-116 U/L Total Protein 7.6 5.7-8.2 g/dL Albumin 4.2 3.2-4.8 g/dL Test 09/13/25 16:10 Range/Units Urine Color Yellow Yellow Urine Clarity Clear Clear Urine pH 6.0 5.0-9.0 Urine Specific [place] 1.031 1.001-1.035 Urine Protein 3+ H Negative Urine Ketones Trace Negative Urine Blood Trace H Negative /uL Urine Nitrite Negative Negative Urine Bilirubin Negative Negative Urine Urobilinogen Normal Negative mg/dL Urine Leukocyte Esterase Negative Negative /uL Urine RBC 5 0 - 3 /hpf Urine Microscopic WBC 2 0-3 /HPF Urine Squamous Epithelial Cells Few <5 /hpf Urine Bacteria Few H None Seen /hpf Urine Mucus Few None Seen Urine Glucose 4+ H Normal mg/dL Microbiology Date/Time Source Procedure Growth Status 09/13/25 16:30 Blood Blood Culture - Preliminary NO GROWTH AFTER 24 HOURS OF INCUBATION. Resulted Left Lower Extremity Arterial Duplex Date: 09/13/2025 10:01 PM Clinical History: left great toe necrosis Comparison: None Technique: Duplex Doppler evaluation including color Doppler and spectral/pulsed waveform analysis of the lower extremity arteries was performed. Finding: Left: Peak systolic velocities are as follows: CORRUGATOR OPERATOR HELPER 181.7 cm/s Deep femoral 211 cm/s SFA proximal 191.6 cm/s SFA mid-portion 107.4 cm/s SFA distal 153.9 cm/s Popliteal 137.6 cm/s Posterior tibial 54 cm/s Anterior tibial 91.4 cm/s Peroneal not visualized Dorsalis pedis 35.9 cm/s The waveforms are triphasic in the common femoral, superficial femoral, profunda femoral and popliteal arteries. There is monophasic waveform in the anterior tibial, posterior tibial and dorsalis pedis arteries. REFERENCE VALUES, [facility] ([facility]) vascular Imaging Lab Criteria: Peak systolic velocity ranges (in cm/sec) are as follows: <150 cm/s - <20 % stenosis 150-200 cm/s - 20-49% stenosis 200-300 cm/s - 50-75% stenosis >300 cm/s -> 75% stenosis IMPRESSION: 1. Approximately 20-49% stenosis of the left common femoral, deep femoral and superficial femoral arteries based on peak systolic velocity criteria. 2. Approximately 60-80% stenosis in the profunda femoral artery. 3. Monophasic waveforms in the anterior tibial, posterior tibial and dorsalis pedis arteries. Assessment Mild to moderate peripheral vascular disease no indication for further angiogram at this point. Recommend direct glucose control and quitting smoking. Follow up as an outpatient. Appreciate Podiatry recommendations Plan/Recommendation Mild to moderate peripheral vascular disease no indication for further angiogram at this point. Recommend direct glucose control and quitting smoking. Follow up as an outpatient. Appreciate Podiatry recommendations Plan discussed with: Patient AMY JENNINGS Jr., MD Sep 15, 2025 07:15
[2025-09-15 08:00] VITALS: PULSE 80; RESP 18; O2SAT 96
[2025-09-15] MEDS ORDERED: HYDR-4902 PO ×2 (08:26→08:37)
[2025-09-15] MEDS ORDERED: AUG875T PO ×2 (08:26→08:37)
--- NOTE | 2025-09-15 08:30 | DVHPN2 ---
Reviewed: Care Plan, H&P, Labs, Medications, Previous Orders, Radiology Changes from previous H/P or p: No Changes Objective Vitals Vital Signs Date Time Temp Pulse Resp B/P (MAP) Pulse Ox O2 Delivery O2 Flow Rate FiO2 09/15/25 05:00 98.6 74 17 140/86 (104) 96 98.6 09/14/25 20:00 Room Air* 0 21 Intake/Output Intake and Output 09/15/25 07:00 Intake Total 1200 ml Output Total 515 ml Balance 685 ml Intake Oral 900 ml IV Total 300 ml Output Urine Total 515 ml # Voids 1 Medications Current Medications Medications Dose Ordered Sig/[place] Route Start Time Stop Time Status Last Admin Dose Admin Cefepime HCl 50 ml @ 12.5 mls/hr Q12H IV 09/14/25 07:00 09/14/25 18:16 12.5 MLS/HR Vancomycin HCl 0 ml @ 0 mls/hr PER PHARMACY IV 09/13/25 20:00 Lisinopril 20 mg DAILY PO 09/14/25 10:00 09/14/25 09:19 20 MG Empaglifozin 10 mg DAILY PO 09/14/25 10:00 09/14/25 09:18 10 MG Dextrose 50 ml UD PRN IV 09/13/25 20:00 Acetaminophen/ Hydrocodone Bitart 1 tab Q4HP PRN PO 09/13/25 20:00 Ondansetron HCl 4 mg Q4HP PRN IV 09/13/25 20:00 Acetaminophen 650 mg Q6HP PRN PO 09/13/25 20:00 Diagnostic Test (Pha) 1 strip ACHS 09/14/25 17:00 09/15/25 06:01 1 STRIP Insulin Human Regular ACHS SC 09/14/25 17:00 09/14/25 21:17 4 UNITS Vancomycin HCl 250 ml @ 250 mls/hr Q16H IV 09/15/25 03:00 09/15/25 02:38 250 MLS/HR Laboratory Results Laboratory Tests 09/14/25 06:48 09/15/25 04:41 Urinalysis Test 09/13/25 16:10 Urine Color Yellow (Yellow) Urine Clarity Clear (Clear) Urine pH 6.0 (5.0-9.0) Urine Specific [place] 1.031 (1.001-1.035) Urine Protein 3+ (Negative) H Urine Ketones Trace (Negative) Urine Blood Trace /uL (Negative) H Urine Nitrite Negative (Negative) Urine Bilirubin Negative (Negative) Urine Urobilinogen Normal mg/dL (Negative) Urine Leukocyte Esterase Negative /uL (Negative) Urine RBC 5 /hpf (0 - 3) Urine Microscopic WBC 2 /HPF (0-3) Urine Squamous Epithelial Cells Few /hpf (<5) Urine Bacteria Few /hpf (None Seen) H Urine Mucus Few (None Seen) Urine Glucose 4+ mg/dL (Normal) H Microbiology Microbiology Date/Time Source Procedure Growth Status 09/13/25 16:30 Blood Blood Culture - Preliminary NO GROWTH AFTER 24 HOURS OF INCUBATION. 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 Vargas appreciated advised conservative management with quitting smoking and controlling blood sugar One set of blood cultures positive for Gram-positive cocci in clusters possible contamination Time spent 50 minutes Advanced care planning time 20 minutes Patient is full code Podiatry cleared for discharge Plan discussed with: Patient My Orders Orders - SHRUTHI ZIMMER MD Procedure Category Date Status Time *Podiatry Consult CONS 09/14/25 Transmitted Shadi(Dvmg) 13:19 Glucose Blood PHA 09/14/25 In Process (Accu-Chek Comfort 17:00 Insulin R (Human) PHA 09/14/25 In Process (Insulin R) 17:00 * Surgical Consult CONS 09/14/25 Transmitted Date of Service: Sep 15, 2025 Billing Provider: SHRUTHI ZIMMER MD Common Visit Codes: [id number] INP/OBS CARE(HIGH) SHRUTHI ZIMMER MD Sep 15, 2025 08:30
--- NOTE | 2025-09-15 08:34 | DVHDS2 ---
Discharge Summary Date of Admission Sep 13, 2025 at 19:42 Date of Discharge: Sep 15, 2025 Admitting Diagnosis Left foot ulcer Wounds: Left foot ulcer Labs/Diagnostic Data: Laboratory Results Test 09/15/25 05:53 09/15/25 04:41 09/14/25 06:48 09/13/25 16:24 POC Glucose 132 mg/dl (70-106) Creatinine 1.34 mg/dL (0.700-1.30) Glomerular Filtration Rate Calc 60 mL/min (>90) White Blood Count 10.0 10^3/uL (4.4-10.8) Red Blood Count 3.61 10^6/uL (4.5-5.90) Hemoglobin 10.3 g/dL (13.5-17.5) Hematocrit 30.5 % (41.0-53.0) Mean Corpuscular Volume 84.4 fL (80.0-100.0) Mean Corpuscular Hemoglobin 28.5 pg (28.0-32.0) Mean Corpuscular Hemoglobin Concent 33.8 g/dL (32.0-36.0) Red Cell Distribution Width 13.0 % (11.8-14.3) Platelet Count 417 10^3/uL (140-450) Mean Platelet Volume 8.0 fL (6.9-10.8) Neutrophils (%) (Auto) 75.1 % (37.0-80.0) Lymphocytes (%) (Auto) 14.7 % (10.0-50.0) Monocytes (%) (Auto) 6.1 % (0.0-12.0) Eosinophils (%) (Auto) 3.1 % (0.0-7.0) Basophils (%) (Auto) 1.0 % (0.0-2.0) Neutrophils # (Auto) 7.5 10 ^3/uL (1.6-8.6) Lymphocytes # (Auto) 1.5 10 ^3/uL (0.4-5.4) Monocytes # (Auto) 0.6 10 ^3/uL (0-1.3) Eosinophils # (Auto) 0.3 10 ^3/uL (0-0.8) Basophils # (Auto) 0.1 10 ^3/uL (0-0.2) Nucleated Red Blood Cells 0.0 % Sodium Level 140 mmol/L (136-145) Potassium Level 3.9 mmol/L (3.5-5.1) Chloride Level 106 mmol/L (98-107) Carbon Dioxide Level 27 mmol/L (20-31) Anion Gap 7 (5-15) Blood Urea Nitrogen 22 mg/dL (9-23) BUN/Creatinine Ratio 15.7 (10.0-20.0) Serum Glucose 149 mg/dL (74-106) Calcium Level 8.5 mg/dL (8.7-10.4) Random Vancomycin Level 9.3 ug/mL (5-10) Prothrombin Time 10.9 sec (9.3-11.8) Prothrombin Time INR 1.03 (0.9-1.15) Activated Partial Thromboplast Time 35.9 SEC (24.5-34.5) Lactic Acid Level 1.6 mmol/L (0.4-2.0) Total Bilirubin 0.2 mg/dL (0.2-1.0) Aspartate Amino Transferase (AST) 17 U/L (13-40) Alanine Aminotransferase (ALT) 18 U/L (7-40) Alkaline Phosphatase 183 U/L (46-116) Total Protein 7.6 g/dL (5.7-8.2) Albumin 4.2 g/dL (3.2-4.8) Test 09/13/25 16:10 Urine Color Yellow (Yellow) Urine Clarity Clear (Clear) Urine pH 6.0 (5.0-9.0) Urine Specific [place] 1.031 (1.001-1.035) Urine Protein 3+ (Negative) Urine Ketones Trace (Negative) Urine Blood Trace /uL (Negative) Urine Nitrite Negative (Negative) Urine Bilirubin Negative (Negative) Urine Urobilinogen Normal mg/dL (Negative) Urine Leukocyte Esterase Negative /uL (Negative) Urine RBC 5 /hpf (0 - 3) Urine Microscopic WBC 2 /HPF (0-3) Urine Squamous Epithelial Cells Few /hpf (<5) Urine Bacteria Few /hpf (None Seen) Urine Mucus Few (None Seen) Urine Glucose 4+ mg/dL (Normal) Other Laboratory Tests 09/15/25 04:41 09/14/25 06:48 Brief Hx & Hospital Course: 65-year-old male insulin-dependent diabetes not taking insulin recently legally blind history of hypertension came in complaining of pain and swelling of the left 1st toe found to have osteomyelitis by CT of the left foot. Treated with the cefepime and vancomycin seen by podiatric Dr. Hsu advised to discharge the patient on p.o. 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 Seen by vascular surgeon Dr. Vargas advised quitting smoking controlling blood sugars. Patient is being discharged home on Augmentin and [place] prescription for Lantus given and the patient was educated about controlling diabetes. One set of blood cultures came positive for Gram-positive cocci in clusters possible contamination Consults/Reason for consult Podiatric Dr. 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 Vargas appreciated advised conservative management with quitting smoking and controlling blood sugar One set of blood cultures positive for Gram-positive cocci in clusters possible contamination Discharge Disposition: Home Discharge Instruct/Medications Diet: Consistent carbohydrate Activity: Light activity Follow Up/Referral: Use medications as prescribed Follow up with your primary Dr in one week Follow up with the podiatric Dr. Hsu in one week Stop smoking cigarettes Medications: Lantus insulin Augmentin [place] Transmitted to pharmacy Scheduled Amoxicillin & Pot Clavulanate (Augmentin Tablet), 875 MG PO BID Cefpodoxime Proxetil (Cefpodoxime Proxetil), 1 TAB PO BID Cetirizine Hcl (Cetirizine Hcl), 1 TAB PO DAILY, (Reported) Insulin Glargine (Lantus Solostar), 25 UNIT SC BID, (Reported) Lisinopril (Lisinopril), 1 TAB PO DAILY, (Reported) Scheduled PRN Hydrocodone-Acetaminophen (Hydrocodone Bitartrate/AC 5-325 mg), 1 TAB PO QID PRN 35 (Time taken for discharge summary 35 minutes) Discharge Statement: "Patient was advised to return to the ER or call 911 if any headaches, dizziness, shortness of breath, chest pain, abdominal pain, bleeding, fevers, or worsening of medical condition. Patient was counseled about treatment plan, medications, possible side effects, patientverbalized understanding. All questions were answered to the best of my ability. 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 Vargas appreciated advised conservative management with quitting smoking and controlling blood sugar One set of blood cultures positive for Gram-positive cocci in clusters possible contamination Date of Service: Sep 15, 2025 Billing Provider: SHRUTHI ZIMMER MD Common Visit Codes: 71927-PUT/OBS DISCH DAY >30min SHRUTHI ZIMMER MD Sep 15, 2025 08:34
[2025-09-15 09:00] VITALS: BP 156/82; PULSE 71; RESP 17; TEMP 98.1; O2SAT 98
== END 2025-09-15 11:45 | disposition home or self-care (01) | DRG 344 ==
LOC: ER 14:13 → OVERFLOW 19:42 → CENTRAL 23:00
PROVIDERS: ADMIT Family Medicine; ATTEND Family Medicine
DX: E11.69 Type 2 diabetes mellitus with other specified complication (principal); M86.172 Other acute osteomyelitis, left ankle and foot; N17.0 Acute kidney failure with tubular necrosis; L08.9 Local infection of the skin and subcutaneous tissue, unspecified; E11.621 Type 2 diabetes mellitus with foot ulcer; I10 Essential (primary) hypertension; Z59.00 Homelessness unspecified; E11.65 Type 2 diabetes mellitus with hyperglycemia; H54.8 Legal blindness, as defined in USA; T38.3X6A Underdosing of insulin and oral hypoglycemic [antidiabetic] drugs, initial encounter; L97.528 Non-pressure chronic ulcer of other part of left foot with other specified severity; Z91.148 Patient's other noncompliance with medication regimen for other reason; Z79.4 Long term (current) use of insulin; Z80.8 Family history of malignant neoplasm of other organs or systems; Z83.3 Family history of diabetes mellitus; Y92.89 Other specified places as the place of occurrence of the external cause
CPT/HCPCS: 36415; 71045; 73630; 73718; 80048; 80053; 80202; 81001; 82565; 82962; 83605; 85025; 85610; 85730; 87040; 87077; 87081; 87186; 87205; 93926; 96361; 96365; 96368; 99291; G0378; J0692; J1815